=== PATIENT | female | born 2000 | race Hispanic/Latino ===

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

== ENCOUNTER 2021-02-28 04:05 | Inpatient (IN) | payer OTHER, SELFPAY ==
[2021-02-28] MEDS ORDERED: PROMETHAZINE INJ 25 MG/ML AMP IM PRN ×2 (07:36)
[2021-02-28] MEDS ORDERED: PENICILLIN 5 MU in NA CHLORIDE 0.9% 100 ML IV ONE (07:36)
[2021-02-28] MEDS ORDERED: Ringers Lactate 1,000 ML IV PRN (07:36)
[2021-02-28] MEDS ORDERED: BUTORPHANOL 1 MG/ML INJ IV PRN (07:36)
[2021-02-28] MEDS ORDERED: METHYLERGONOVINE 0.2MG/ML AMP IM PRN (07:36)
[2021-02-28] MEDS ORDERED: Ringers Lactate 1,000 ML IV SCH (08:00)
[2021-02-28 08:10] LABS: Absolute Lymphocytes (CBC) 1.7 K/uL (0.7-4.9); Basophils % 0.2 % (0-1.3); Hematocrit 40.8 % (36.0-45.0); Lymphocytes % 19.5 % (15.3-44.8); MPV 10.4 fL (7.6-11.3); RBC Red Blood Cell Count 4.51 M/uL (3.86-4.86)
[2021-02-28] MEDS ORDERED: OXYTOCIN/LR 20 UNIT/1,000 ML BAG IV ONE (08:15)
[2021-02-28 08:20] LABS: Urine Appearance CLEAR (Clear); Urine Bilirubin NEGATIVE (Negative); Urine Blood 2+ (Negative); Urine Color YELLOW (Yellow); Urine Glucose NEGATIVE (Negative); Urine Protein NEGATIVE (Negative); Urine Specific Gravity >=1.030 (1.005-1.030)
[2021-02-28 08:21] LABS: Urine Microscopic Reflex ORDER UMIC
[2021-02-28 08:29] LABS: Urine Bacteria 20-50 /HPF (<20); Urine RBC <5 /HPF (NONE SEEN)
--- NOTE | 2021-02-28 08:44 | PREOPHP ---
Date of Admission: 02/28/2021 History Of Present Illness: This is a 20-year-old primigravida at 39 weeks, scheduled for Cytotec in [facility] this afternoon, came in with bloody show and in early labor. She is advanced to 1.5 cm, 50% effaced, vertex well applied, no further bleeding. She is rio regularly, but mildly. We do not need Cytotec. We will admit her and start Pitocin augmentation of early labor, which she is in a t this point. The patient is strep positive, was started on penicillin. She had a 15,000 colony cou nt of proteus discovered on her urine. I have given her Keflex, which she has not been able to start yet, but the penicillin before she will get today should suffice, but we may continue the Keflex aft er the delivery. She is Rh positive, immune to Rubella. Family History: Noncontributory. Past Medical History: She has had a herpes outbreak. She has been on acyclovir. She has no current signs of herpes outbreak. Allergies: SHE HAS NO ALLERGIES. Medications: She is taking no medicines prior to admission other than vitamins and iron. Physical Examination: HEENT: Clear. Pupils equal, round, and reactive to light and accommodation. Conjunctivae well perf used. No oral, lingual, or buccal lesions. Chest and Lungs: Clear. Heart: Without murmurs, thrills, heaves, or rubs. Breasts: Without masses on previous visits. Abdomen: Term size. Extremities: +2 edema. Assessment And Plan: She has normal reflexes. Her blood pressures have been normal. She had a pree clamptic workup, which is negative, but we will monitor her closely during the labor to see if she de velops any signs of preeclampsia. This has been discussed with the patient on several occasions. Admit for Pitocin augmentation of early labor. OH/PAM Voice ID: [id number]
[2021-02-28] MEDS ORDERED: OXYTOCIN/LR 20 UNIT/1,000 ML BAG IV SCH ×2 (09:00→16:00)
[2021-02-28 10:19] VITALS: BMI 35.2
--- NOTE | 2021-02-28 10:20 | PN ---
Penicillin has been started. We have yet to start Pitocin. She is 1.5 cm, 50% effaced, vertex, very well applied at about -1 station. Rupture of membranes, minimal fluid as the baby's head is well do wn into the pelvis, but I did not see any trickle of clear fluid. We will begin the Pitocin as soon as possible to get the patient in labor. OH/PMA Voice ID: [id number] Report ID: [id number]
[2021-02-28] MEDS ORDERED: PENICILLIN 2.5 MU in NA CHLORIDE 0.9% 100 ML IV SCH ×2 (12:00→13:00)
--- NOTE | 2021-02-28 12:35 | PN ---
Constance Mireles is on 12 milliunits of Pitocin, rio regularly now. She is now 3 cm, 60% to 70% effaced, vertex, very well applied at -1, possibly almost 0 station. I think the baby is occiput pos terior. Pelvic rocks discussed. She has had 1 mg of Stadol and 25 mg of Phenergan. Stadol IV, Phen ergan IM. At 5 cm, she will probably request epidural, but is doing well with breathing techniques t hus far. NBC/MODL Voice ID: [id number] Report ID: [id number]
[2021-02-28] MEDS ORDERED: ROPIVACAINE HCL 0.2% 20ML AMP IV ONE (12:38)
[2021-02-28] MEDS ORDERED: BUPIVACAINE 0.25% PF 10 ML VIAL IJ PRN (12:38)
[2021-02-28] MEDS ORDERED: FENTANYL CITR 100 MCG/2 ML IV ONE (12:38)
[2021-02-28] MEDS ORDERED: ROPIVACAINE HCL 0 ML ONE (13:08)
[2021-02-28] MEDS ORDERED: ROPIVACAINE HCL 100 ML EP ONE (13:09)
[2021-02-28] MEDS ORDERED: BISACODYL 10 MG RECTAL SUPP PR PRN (15:55)
[2021-02-28] MEDS ORDERED: Oxycodone HCl/Acetaminophen 1 TAB TAB PO PRN ×2 (15:55)
[2021-02-28] MEDS ORDERED: DIPHENHYDRAMINE 25 MG TAB/CAP PO PRN (15:55)
[2021-02-28] MEDS ORDERED: ACETAMINOPHEN 500 MG TAB PO PRN (15:55)
[2021-02-28] MEDS ORDERED: DOCUSATE NA/SENNA CONC 1 TAB PO PRN (15:55)
[2021-02-28] MEDS ORDERED: IBUPROFEN 600 MG TAB PO PRN (16:11)
--- NOTE | 2021-02-28 16:14 | OP ---
Surgeon: MD Constance Erazo Chi, 20-year-old primigravida, 39 weeks, scheduled for Cytotec insertion this afternoon, cam e in early this morning in early labor. Rupture of membranes, clear fluid. Baby well applied. Stad ol 1 mg IV, Phenergan 25 mg IM initially, then at 4 cm requested and received epidural anesthesia. T he patient is Rh positive, immune to rubella, positive strep, received 2 doses of penicillin during t he labor. Second stage of about 20 to 25 minutes. Spontaneous vaginal delivery of a 7 pounds 10 oun chrissy female, Apgars 9 and 9. Second degree to partial third degree spontaneous laceration, simulating episiotomy, repaired with 2-0 chromic. Schultze delivery of the placenta was inspected and noted to be intact and normal. Estimated blood loss 400 cc approximately. The patient tolerated all procedu res. Final Diagnoses: Term intrauterine , spontaneous labor, labor augmentation, epidural anesth esia, penicillin prophylaxis. OH/PAM Voice ID: [id number] Report ID: [id number]
[2021-02-28 22:38] LABS: RPR (Rapid Plasma Reagin) NON-REACT (NON-REACT)
[2021-02-28] MEDS ORDERED: Ringers Lactate 2,000 ML IV ONE (23:54)
[2021-03-01 07:00] VITALS: TEMP 97.7
--- NOTE | 2021-03-01 07:57 | DS ---
Hospital Course: This is a 20-year-old primigravida, 39 weeks, came in an early labor. Augmentation was performed during the labor. Stadol 1 mg IV, Phenergan 25 mg IM, at 4 cm requested and received epidural anesthesia, went rapidly to complete second stage of about 25 minutes. Spontaneous vaginal delivery of a 7 pounds 10 ounces female, Apgars 9 and 9. Midline second-degree, partial third-degree laceration, simulating episiotomy, repaired with 2-0 chromic. Schultze delivery of the placenta, wh ich was inspected and noted to be intact and normal. Approximately 400 cc blood loss. Penicillin pr ophylaxis given during the labor for positive beta strep status 2 doses given. ; afebrile, ambulating, and voiding. Lochia is normal. No post epidural problems. The patient requests no juan lgesics on dismissal. She has had her Tdap immunization. Final Diagnoses: Term intrauterine 39 weeks, vaginal delivery, epidural anesthesia, penici llin prophylaxis. OH/PAM Voice ID: [id number] Report ID: [id number]
[2021-03-01 13:37] VITALS: BP 131/84
[2021-03-01] MEDS ORDERED: Tdap (Diph,Pertuss(Acell),Tet Vac) 0.5 ML SYR IMVAC ONE (16:00)
[2021-03-04 18:38] LABS: HBsAG Nonreactive (Nonreactive)
== END 2021-03-01 17:00 | disposition home or self-care (01) | DRG 768 ==
LOC: L&D 04:05 → 2ND-WC 07:37
PROVIDERS: ADMIT Specialist; ATTEND Specialist
PROC: 10E0XZZ Delivery of Products of Conception, External Approach (ICD-10-PCS; principal; 2021-02-28)
PROC: 0DQR0ZZ Repair Anal Sphincter, Open Approach (ICD-10-PCS; 2021-02-28)
PROC: 10907ZC Drainage of Amniotic Fluid, Therapeutic from Products of Conception, Via Natural or Artificial Opening (ICD-10-PCS; 2021-02-28)
DX: O70.20 Third degree perineal laceration during delivery, unspecified (principal); Z37.0 Single live birth; O98.32 Other infections with a predominantly sexual mode of transmission complicating childbirth; O99.824 Streptococcus B carrier state complicating childbirth; A60.09 Herpesviral infection of other urogenital tract; Z3A.39 39 weeks gestation of pregnancy; Z23 Encounter for immunization; Z20.822 Contact with and (suspected) exposure to COVID-19
CPT/HCPCS: 36415; 81003; 81015; 85025; 86592; 86901; 87086; 87088; 87340; 90471; 90715; J0595; J2210; J2540; J2590; J2795; J3010; J7120; U0003

== ENCOUNTER 2021-03-02 20:35 | Emergency (ER) | payer OTHER ==
[2021-03-02 23:24] LABS: Urine Blood 2+ (Negative); Urine Glucose Negative (Negative); Urine Protein Negative (Negative); Urine Specific Gravity 1.015 (1.005-1.030)
[2021-03-02 23:42] LABS: Absolute Lymphocytes (CBC) 1.8 K/uL (0.7-4.9); Basophils % 0.8 % (0-1.3); Hematocrit 36.7 % (36.0-45.0); Lymphocytes % 23.5 % (15.3-44.8); MPV 9.7 fL (7.6-11.3); RBC Red Blood Cell Count 4.04 M/uL (3.86-4.86)
[2021-03-02 23:42] LABS: Urine Appearance CLEAR (Clear); Urine Bilirubin NEGATIVE (Negative); Urine Blood 3+ (Negative); Urine Color YELLOW (Yellow); Urine Glucose NEGATIVE (Negative); Urine Protein NEGATIVE (Negative); Urine Specific Gravity 1.015 (1.005-1.030); Urine pH 6.5 (5.0-7.0)
[2021-03-02 23:51] LABS: Urine Microscopic Reflex ORDER UMIC
[2021-03-02 23:51] LABS: Urine Specific Gravity/Preg 1.015 (1.005-1.030)
[2021-03-03] MEDS ORDERED: ACETAMINOPHEN 325 MG TABLET ONE (00:03)
[2021-03-03] MEDS ORDERED: FUROSEMIDE 40 MG TABLET ONE (00:03)
[2021-03-03 00:15] LABS: Urine Bacteria <20 /HPF (<20); Urine Yeast FEW (NONE SEEN)
--- NOTE | 2021-03-03 00:45 | ER ---
Nurse's Notes [facility] Name: Constance Mireles Age: 20 yrs Sex: Female : 2000 Arrival Date: 03/02/2021 Time: 20:58 Bed 7 Private MD: Diagnosis: Acute headache. Swelling both feet and ankles. S/P Presentation: 03/02 21:17 Chief complaint: Patient states: headache and swelling in feet and ankles, 2 bb days ago was released from hospital yesterday evening. Coronavirus screen: Client denies travel out of the [place] in the last 14 days. At this time, the client does not indicate any symptoms associated with coronavirus-19. Ebola Screen: Patient negative for fever greater than or equal to 101.5 degrees Fahrenheit, and additional compatible Ebola Virus Disease symptoms Patient denies exposure to infectious person. Patient denies travel to an Ebola-affected area in the 21 days before illness onset. No symptoms or risks identified at this time. Initial Sepsis Screen: Does the patient meet any 2 criteria? No. Patient's initial sepsis screen is negative. Does the patient have a suspected source of infection? No. Patient's initial sepsis screen is negative. Risk Assessment: Do you want to hurt yourself or someone else? Patient reports no desire to harm self or others. Onset of symptoms was March 02, 2021. 21:17 Method Of Arrival: Ambulatory bb 21:17 Acuity: GLENDA 3 bb Triage Assessment: 21:19 Headache History: Denies prior headaches. General: Appears in no apparent distress. bb uncomfortable, obese, well groomed, well developed, well nourished, Behavior is calm, cooperative, appropriate for age. Pain: Pain currently is 5 out of 10 on a pain scale. Pain began gradually, Also complains of nausea. Neuro: No deficits noted. 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 Flu vaccine is not up to date. It has been more than one year since last vaccine. - Social history:: Smoking status: Patient denies any tobacco usage or history of. Screenin:30 Abuse screen: Denies threats or abuse. Nutritional screening: No deficits noted. ea Tuberculosis screening: No symptoms or risk factors identified. Fall Risk None identified. Assessment: 21:30 General: Appears in no apparent distress. Behavior is calm, cooperative, appropriate ea for age. Pain: Denies pain. Neuro: Level of Consciousness is awake, alert, obeys commands, Oriented to person, place, time. Cardiovascular: Patient's skin is warm and dry. Respiratory: Airway is patent Respiratory effort is even, unlabored, Respiratory pattern is regular, symmetrical. Derm: Skin is pink, warm \T\ dry. 03/03 01:05 Reassessment: Patient and/or family updated on plan of care and expected duration. Pain ea level reassessed. Patient is alert, oriented x 3, equal unlabored respirations, skin warm/dry/pink. Discharge instruction given to patient verbalized the understanding of instruction. 01:10 Reassessment: Patient and/or family updated on plan of care and expected duration. Pain ea level reassessed. Patient is alert, oriented x 3, equal unlabored respirations, skin warm/dry/pink. Discharge instruction given to patient verbalized the understanding of instruction. Pt left ED ambulatory tolerating well. Vital Signs: 03/02 21:17 BP 141 / 90; Pulse 70; Resp 16; Temp 98.4; Pulse Ox 99% ; Weight 97.52 kg (R); Height 5 bb ft. 6 in. (167.64 cm); Pain 5/10; 03/03 01:00 BP 125 / 69; Pulse 68; Resp 18; Pulse Ox 97% ; ea 03/02 21:17 Body Mass Index 34.70 (97.52 kg, 167.64 cm) bb ED Course: 03/02 20:58 Patient arrived in ED. es 21:17 Raven Grier, RN is Primary Nurse. bb 21:19 Triage completed. bb 21:19 Arm band placed on right wrist. bb 21:30 Patient has correct armband on for positive identification. Bed in low position. Call ea light in reach. 22:56 Stephen Ovalle MD is Attending Physician. pkl 23:30 Urine collected: clean catch specimen, clear. em 23:42 CT Head Brain wo Cont In Process Unspecified. EDMS 03/03 00:43 Mp Reveles MD is Referral Physician. pkl 01:06 No provider procedures requiring assistance completed. Patient did not have IV access ea during this emergency room visit. Administered Medications: 03/02 23:41 Drug: Tylenol 650 mg Route: PO; ea 03/03 00:16 Follow up: Response: No adverse reaction ea 03/02 23:41 Drug: LaSIX (furosemide) 40 mg Route: PO; ea 03/03 00:16 Follow up: Response: No adverse reaction ea Outcome: 00:45 Discharge ordered by . pkl 01:06 Discharged to home ambulatory, with family. ea 01:06 Condition: stable 01:06 Discharge instructions given to patient, Instructed on discharge instructions, follow up and referral plans. medication usage, Demonstrated understanding of instructions, follow-up care, medications, Prescriptions given X 1. 01:11 Patient left the ED. ea Signatures: Dispatcher [employer] [facility] Stephen Ovalle MD MD pkl Meghna Márquez Edgar, RN RN Raven Jonas RN RN Alecia Scott RN RN torsten
--- NOTE | 2021-03-03 00:45 | EDPHYS ---
Physician Documentation [facility] Name: Constance Mireles Age: 20 yrs Sex: Female : 2000 Arrival Date: 03/02/2021 Time: 20:58 Bed 7 Private MD: ED Physician Stephen Ovalle HPI: 03/02 23:09 This 20 yrs old Female presents to ER via Ambulatory with complaints of pkl Headache, Toes swelling. 23:09 The patient complains of pain to the top of head and forehead. The patient describes pkl the headache as constant. Onset: The symptoms/episode began/occurred today. Associated signs and symptoms: Pertinent positives: swelling both feet and ankles. Patient is 2 days . 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 Flu vaccine is not up to date. It has been more than one year since last vaccine. - Social history:: Smoking status: Patient denies any tobacco usage or history of. ROS: 23:09 ENT: Negative for injury, pain, and discharge. pkl 23:09 Eyes: Positive for visual disturbance. 23:09 Neck: Negative for pain with movement, stiffness. 23:09 Cardiovascular: Negative for chest pain. 23:09 Respiratory: Negative for cough. 23:09 Abdomen/GI: Positive for abdominal pain, of the right lower quadrant and left lower quadrant. 23:09 Back: Negative for acute changes. 23:09 : Negative for urinary symptoms. 23:09 MS/extremity: Positive for swelling, of the both feet and ankles. 23:09 Skin: Negative for rash. 23:09 Neuro: Negative for altered mental status, loss of consciousness. Exam: 23:09 Head/Face: Normocephalic, atraumatic. pkl 23:16 Eyes: Pupils: no acute changes, Extraocular movements: no acute changes, Conjunctiva: pkl normal, Corneas: are normal. 23:16 ENT: Exam is negative for acute changes. 23:16 Neck: Exam negative for acute changes. 23:16 Chest/axilla: Exam negative for acute changes. 23:16 Cardiovascular: Rate: normal, Rhythm: regular. 23:16 Respiratory: the patient does not display signs of respiratory distress, Respirations: normal, Breath sounds: are clear throughout. 23:16 Abdomen/GI: Bowel sounds: normal, Palpation: soft, mild abdominal tenderness, in the right lower quadrant and left lower quadrant. 23:16 Back: Exam negative for acute changes. 23:16 : Exam negative for acute changes. 23:16 Musculoskeletal/extremity: Extremities: grossly normal except: noted in the both feet and ankles: swelling. 23:16 Skin: Exam negative for rash. 23:16 Neuro: Orientation: is normal, Mentation: is normal, Cranial nerves: grossly normal, Motor: is normal. Vital Signs: 21:17 BP 141 / 90; Pulse 70; Resp 16; Temp 98.4; Pulse Ox 99% ; Weight 97.52 kg (R); Height 5 bb ft. 6 in. (167.64 cm); Pain 5/10; 03/03 01:00 BP 125 / 69; Pulse 68; Resp 18; Pulse Ox 97% ; ea 03/02 21:17 Body Mass Index 34.70 (97.52 kg, 167.64 cm) bb MDM: 03/02 22:56 Patient medically screened. pkl 03/03 00:40 Data reviewed: vital signs, nurses notes. ED course: Discussed lab and CT scan result pkl with patient. Patient feeling better. Advised to follow up with Dr. Reveles in 1 to 2 days. Patient understood instructions. 03/02 23:08 Order name: CBC with Diff pkl 03/02 23:08 Order name: Chem 7 pkl 03/02 23:08 Order name: UA pkl 03/02 23:08 Order name: CBC with Automated Diff; Complete Time: 00:36 EDMS 03/02 23:08 Order name: Urinalysis; Complete Time: 00:36 EDMS 03/02 23:08 Order name: CT Head Brain wo Cont pkl 03/02 23:15 Order name: Visual Acuity pkl 03/02 23:24 Order name: Urine Dipstick-Ancillary; Complete Time: 00:36 EDMS 03/02 23:26 Order name: Urine --Ancillary (enter results); Complete Time: 00:36 mw2 03/02 23:47 Order name: Labs - recollect needed: [facility] 03/02 23:51 Order name: Urine Microscopic Only; Complete Time: 00:36 EDMS Administered Medications: 03/02 23:41 Drug: Tylenol 650 mg Route: PO; 03/03 00:16 Follow up: Response: No adverse reaction 03/02 23:41 Drug: LaSIX (furosemide) 40 mg Route: PO; 03/03 00:16 Follow up: Response: No adverse reaction Disposition Summary: 03/03/21 00:45 Discharge Ordered Location: Home pkl Problem: new pkl Symptoms: have improved pkl Condition: Stable pkl Diagnosis - Acute headache. Swelling both feet and ankles. S/P pkl Followup: pkl - With: Mp Reveles MD - When: 1 - 2 days - Reason: Re-evaluation by your physician Discharge Instructions: - Discharge Summary Sheet pkl Forms: - Medication Reconciliation Form pkl - Thank You Letter pkl - Antibiotic Education pkl - Prescription Opioid Use pkl Prescriptions: - Lasix 40 mg Oral Tablet - take 1 tablet by ORAL route once daily for 10 days; 10 tablet; Refills: 0, pkl Product Selection Permitted Signatures: Dispatcher [employer] EDMS Stephen Ovalle MD MD pkl Raven Grier RN RN Alecia Scott RN RN Fer Sanon mw2
[2021-03-03 03:37] VITALS: TEMP 98.4
[2021-03-03 03:39] VITALS: BP 125/69; O2SAT 97
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
== END 2021-03-03 01:11 | disposition home or self-care (01) ==
LOC: ER 20:35
DX: R22.43 Localized swelling, mass and lump, lower limb, bilateral (principal); O90.89 Other complications of the puerperium, not elsewhere classified
CPT/HCPCS: 36415; 70450; 81003; 81015; 81025; 85025; 99284

== ENCOUNTER 2021-11-14 11:30 | Emergency (ER) | payer SELFPAY ==
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
[2021-11-14 21:22] VITALS: TEMP 98.1; O2SAT 100
[2021-11-14 21:23] VITALS: BP 106/72
== END 2021-11-14 15:06 | disposition home or self-care (01) ==
LOC: ER 11:30
DX: S13.4XXA Sprain of ligaments of cervical spine, initial encounter (principal); S20.219A Contusion of unspecified front wall of thorax, initial encounter; V47.5XXA Car driver injured in collision with fixed or stationary object in traffic accident, initial encounter
CPT/HCPCS: 71046; 72040; 99284